=== PATIENT | male | born 1960 | race Caucasian/White ===

== ENCOUNTER 2016-10-12 08:45 | Emergency (ER) | payer OTHER ==
[~2016-10-12] VITALS: Ht 177.8 cm; Wt 104.3 kg
[~2016-10-12 08:45] MED LIST: AMLODIPINE-BEN1 EAC5 PO; CARVEDILOL12.5 M1 PO; NAPROSYN500 M1 PO; OMEPRAZOLE20 M2 PO; PERCOCET 5-3251 EACH PO; TAMSULOSIN HCL0.4 M1 PO; VALIUM2 M1 PO
[2016-10-12 08:49] VITALS: BP 138/84
--- NOTE | 2016-10-12 09:29 | RADIOLOGY REPORT ---
EXAMINATION: XR CHEST CLINICAL INFORMATION: Hemoptysis. COMPARISON: Chest CT from 03/10/2016. Radiograph 05/05/2011 TECHNIQUE: PA and lateral views of the chest were obtained. FINDINGS: The lungs are well expanded. There is no dense consolidation, edema, or effusion. Bronchial wall thickening is noted. No pneumothorax. The cardiomediastinal silhouette is unchanged and within normal limits. Mild degenerative changes of the spine. IMPRESSION: There is no dense consolidation. Bronchial wall thickening can be seen with a small airways process such as asthma or atypical/viral infection.
--- NOTE | 2016-10-12 10:18 | ED DYSPNEA/ASTHMA COMPLAINT ---
History of Present Illness General Chief Complaint: General Adult Stated Complaint: COUGHING UP BLOOD Source: patient, old records Exam Limitations: no limitations Vital Signs & Intake/Output Vital Signs & Intake/Output ED Intake and Output 10/13 0000 10/12 1200 Intake Total 0 Output Total Balance 0 Intake, Oral 0 Patient 230 lb Weight Allergies Coded Allergies: NO KNOWN ALLERGIES (05/05/11) Reconcile Medications Albuterol Sulfate (Proair Hfa) 90 MCG HFA.AER.AD 2 PUF INH Q4-6 PRN PRN bronchitis Alfuzosin HCl (Alfuzosin HCl ER) 10 MG TAB.ER.24H 1 TAB PO DAILY PROSTATE ( Reported) Amlodipine Besylate/Benazepril (Amlodipine-Benazepril 10-40 MG) 10 MG-40 MG CAPSULE 1 CAP PO DAILY HEART (Reported) Atorvastatin Calcium 20 MG TABLET 1 TAB PO DAILY CHOLESTEROL (Reported) Carvedilol 12.5 MG TABLET 1 TAB PO BID HEART (Reported) Diazepam (Valium) 2 MG TABLET 1 TAB PO Q8HR PRN muscle spasms Levofloxacin (Levaquin) 750 MG TABLET 1 TAB PO DAILY bronchitis Methylprednisolone. (Medrol) 4 MG TAB.DS.PK 1 DP PO AD bronchitis 6 on day 1 then reduce by one tablet daily until gone Naproxen (Naprosyn) 500 MG TABLET 1 TAB PO BID PRN pain Omeprazole 20 MG CAPSULE.DR 1 CAP PO DAILY GI (Reported) Oxycodone HCl/Acetaminophen (Percocet 5-325 MG Tablet) 5 MG-325 MG TABLET 1 TAB PO Q6HR PRN pain Robitussin AC (Guaifenesin-Codeine Syrup) 200 MG-20 MG/10 ML LIQUID 10 ML PO Q6HR PRN COUGH Tamsulosin HCl 0.4 MG CAP.ER.24H 1 CAP PO DAILY PROSTATE (Reported) Triage Note: PT C/O CONGESTED COUGH SINCE LAST MONDAY. STATES HE WAS COUGHING UP BLOOD WITH PHLEGM ON MONDAY AND LAST NIGHT Triage Nurses Notes Reviewed? yes Onset: Abrupt Duration: day(s): (5), constant Timing: recent history Severity: mild, moderate Activities at Onset: none Prior Episodes/Possible Cause: similar episode last year Associated Symptoms: cough HPI: 56-year-old male with history of high blood pressure and irregular heartbeat that is controlled with medication on any blood thinners presents emergency room complaining of congestion productive cough of yellow sputum for the past 5 days. He states his is home sick with similar symptoms after being seen here the patient states that he's had 3 episodes of coughing up a small on a blood. The patient states that there is no pain with inspiration no shortness of breath. He does smoke however is not seen by a carpet jack and he has not sought care for the symptoms until today. No dizziness lightheadedness abdominal pain nausea vomiting or diarrhea. The patient states that he had an exact same episode of symptoms last winter for which she was treated with antibiotics and prednisone and resolved on its own. no fever no chills (ADELIA GARAY) Past History Travel History Traveled to [place] past 21 day No Medical History Any Pertinent Medical History? see below for history Cardiovascular: hypertension, IRREGULAR HEARTBEAT Surgical History Surgical History: non-contributory Psychosocial History What is your primary language Slovenian Tobacco Use: Current Daily Use Daily Tobacco Use Amount/Type: => 5 Cigarettes daily ETOH Use: occasional use Illicit Drug Use: denies illicit drug use Family History Hx Contributory? No (ADELIA GARAY) Review of Systems Review of Systems Constitutional: Reports: see HPI. All Other Systems: Reviewed and Negative Comments Review of systems: See HPI, All other systems negative. Constitutional, no chills no fever, no malaise HEENT: No visual changes no sore throat Cardiovascular: No chest pain , no palpitation Skin,no rashes, no change in skin Respiratory: No dyspnea cough sputum hemoptysis GI: No nausea no vomiting, no diarrhea, n : No dysuria Muscle skeletal: No joint pain, no back pain, no neck pain, Neurologic: No numbness no headache Psych: No stress Heme/endocrine: No bruising no bleeding Immunology: No lymphadenopathy (ADELIA GARAY) Physical Exam Physical Exam General Appearance: well developed/nourished, no apparent distress, alert, awake , comfortable Respiratory: normal breath sounds, chest non-tender, no respiratory distress, lungs clear Comments: Well-developed well-nourished patient in no apparent distress. Head/Face: Atraumatic, no maxillary/frontal sinus tenderness, no facial swelling Eyes: PERRL, EOMI, no conjunctival injection. Ear:External auditory canals clear, no erythema Nose: atraumatic.Normal inspection Throat: Moist mucous membranes.Pharynx normal. No pharyngeal erythema/exudate seen. No stridor/drooling or assymetry. No swelling or edema. Neck: Supple, no lymphadenopathy, FROM Back: FROM, Nontender Cardiovascular: Regular rate and rhythms no murmurs rubs or gallops, Respiratory: Chest nontender.There were no bony deformities, no asymmetry. No respiratory distress. Patient speaking in full complete sentences. Breath sounds clear to auscultation bilaterally: NO W/R/R Extremities: full range of motion Neuro: Alert and oriented x3 Skin: Warm & dry;No appreciable rash on exposed skin Psych: Mood affect normal, normal memory normal judgment. Core Measures ACS in differential dx? No Severe Sepsis Present: No Septic Shock Present: No (GUS SHAH,ADELIA) Progress Differential Diagnosis: asthma, AMI, bronchitis, costochondritis, musculoskeletal pain, pericarditis, pulmonary embolism, pneumonia, pneumothorax, unstable angina, malignancy Plan of Care: Discussed with the patient his x-ray findings. There is no pain with inspiration he is not tachycardic oxygen saturations are within normal limits. Discussed with however given the episodes hemoptysis that my recommendations are for workup including CAT scan. Patient states that he had a similar episode with the exact same symptoms last winter for which he was treated with antibiotics and steroids and cough medication and it resolved on its own. he is declining workup including ct at this time. Discussed with the patient at [facility] however that if the symptoms worsen he needs to return to emergency room immediately workup at that time. The patient states he does smoke and will follow up with his pmd this week for repeat eval to ensure symptoms have resolved. again the pt was recommended to him that he have a more extensive workup, my differential was discussed wit him, he denies chest pain, palpitaitons, pain with inspiration and he is declining ct at this time. The patient feels comfortable with this plan case was discussed with Dr. pereira Diagnostic Imaging: Viewed by Me: Radiology Read. Discussed w/RAD: Radiology Read. Radiology Impression: PATIENT: YOKO ROGERS PRESENT AGE: 56 PATIENT ACCOUNT NO: [id number] : 62 LOCATION: [facility] ORDERING PHYSICIAN: EDNA KAUR DO (TBS) SERVICE DATE: 10/12/16 EXAM TYPE: RAD - XRY-CHEST XRAY, PA AND LATERAL EXAMINATION: XR CHEST CLINICAL INFORMATION: Hemoptysis. COMPARISON: Chest CT from 03/10/2016. Radiograph 05/05/2011 TECHNIQUE: PA and lateral views of the chest were obtained. FINDINGS: The lungs are well expanded. There is no dense consolidation, edema, or effusion. Bronchial wall thickening is noted. No pneumothorax. The cardiomediastinal silhouette is unchanged and within normal limits. Mild degenerative changes of the spine. IMPRESSION: There is no dense consolidation. Bronchial wall thickening can be seen with a small airways process such as asthma or atypical/ viral infection. DICTATED BY: JESSICA SCOTT MD DATE/TIME DICTATED:10/12/16925 WELLNESS MANAGER:SAL DATE/TIME TRANSCRIBED:10/12/16925 CONFIDENTIAL, DO NOT COPY WITHOUT APPROPRIATE AUTHORIZATION. <Electronically signed in Other Vendor System> SIGNED BY: JESSICA SCOTT MD 10/12/16928 Initial ED EKG: none (ADELIA GARAY) Departure Departure Time of Disposition: 1029 Disposition: HOME OR SELF CARE Condition: Stable Clinical Impression Primary Impression: Bronchitis Referrals: ROSALIA REGALADO MD (PCP/Family) Additional Instructions: follow up with dr regalado this week for repeat evaluation to ensure your symptoms are improving.. Levaquin as directed, prednisone and Robitussin with codeine as directed. Pro-air inhaler as discussed. Return immediately if he develop worsening of her symptoms, persistent hemoptysis if he developed shortness of breath or pain with inspiration. Departure Forms: Customer Survey General Discharge Information Prescriptions: Current Visit Scripts Methylprednisolone. (Medrol) 1 DP PO AD #1 DP 6 on day 1 then reduce by one tablet daily until gone Levofloxacin (Levaquin) 1 TAB PO DAILY #5 TAB Albuterol Sulfate (Proair Hfa) 2 PUF INH Q4-6 PRN PRN bronchitis #1 INHAL Robitussin AC (Guaifenesin-Codeine Syrup) 10 ML PO Q6HR PRN COUGH #200 ML (ADELIA GARAY) PA/DETECTIVE AND INTELLIGENCE ANALYST Co-Sign Statement Statement: ED Attending supervision documentation- [] I saw and evaluated the patient. I have also reviewed all the pertinent lab results and diagnostic results. I agree with the findings and the plan of care as documented in the PA's/DETECTIVE AND INTELLIGENCE ANALYST's documentation. [X] I have reviewed the ED Record and agree with the PA's/DETECTIVE AND INTELLIGENCE ANALYST's documentation. [] Additions or exceptions (if any) to the PAs/DETECTIVE AND INTELLIGENCE ANALYST's note and plan are summarized below: [] (MODESTO HERNANDEZ,ABHIJEET) Critical Care Note Critical Care Note Critical Care Time: non-applicable (ADELIA GARAY)
[2016-10-12] MEDS ORDERED: ATORVASTATIN CA20 M1 PO (10:20)
[2016-10-12] MEDS ORDERED: ALFUZOSIN HCL E10 MG PO (10:20)
[2016-10-12] MEDS ORDERED: LEVAQUIN750 M1 PO (10:31)
[2016-10-12] MEDS ORDERED: PROAIR HFA8.5 GM INH (10:31)
[2016-10-12] MEDS ORDERED: MEDROL4 M2 PO (10:31)
[2016-10-12] MEDS ORDERED: GUAIFENESIN-COD10 ML PO (10:31)
== END 2016-10-12 10:34 ==
LOC: ERH 08:45
DX: J40 Bronchitis, not specified as acute or chronic (principal); Z72.0 Tobacco use

== ENCOUNTER 2016-11-03 16:02 | Emergency (ER) | payer OTHER ==
[~2016-11-03] VITALS: Ht 180.3 cm; Wt 104.3 kg
[~2016-11-03 16:02] MED LIST changes: +ALFUZOSIN HCL E10 MG PO; +ATORVASTATIN CA20 M1 PO; +GUAIFENESIN-COD10 ML PO; +LEVAQUIN750 M1 PO; +MEDROL4 M2 PO; +PROAIR HFA8.5 GM INH
[2016-11-03 16:06] VITALS: BP 160/85
--- NOTE | 2016-11-03 16:30 | ED INFLUENZA/URI COMPLAINT ---
History of Present Illness General Chief Complaint: General Adult Stated Complaint: PT IS HERE FOR HEAD AND CHEST COLD Source: patient Exam Limitations: no limitations Vital Signs & Intake/Output Vital Signs & Intake/Output Vital Signs Date Time Temp Pulse Resp B/P Pulse O2 O2 Flow FiO2 Ox Delivery Rate 11/03 1628 96 11/03 1606 98.3 88 20 160/85 98 Room Air ED Intake and Output 11/04 0000 11/03 1200 Intake Total 0 Output Total Balance 0 Intake, Oral 0 Patient 230 lb Weight Allergies Coded Allergies: NO KNOWN ALLERGIES (11/03/16) Reconcile Medications Albuterol Sulfate (Proair Hfa) 90 MCG HFA.AER.AD 2 PUF INH Q4-6 PRN PRN bronchitis Alfuzosin HCl (Alfuzosin HCl ER) 10 MG TAB.ER.24H 1 TAB PO DAILY PROSTATE ( Reported) Amlodipine Besylate/Benazepril (Amlodipine-Benazepril 10-40 MG) 10 MG-40 MG CAPSULE 1 CAP PO DAILY HEART (Reported) Atorvastatin Calcium 20 MG TABLET 1 TAB PO DAILY CHOLESTEROL (Reported) Benzonatate (Tessalon Perle) 100 MG CAPSULE 1 CAP PO TID PRN COUGH Carvedilol 12.5 MG TABLET 1 TAB PO BID HEART (Reported) Diazepam (Valium) 2 MG TABLET 1 TAB PO Q8HR PRN muscle spasms Levofloxacin (Levaquin) 750 MG TABLET 1 TAB PO DAILY bronchitis Levofloxacin (Levaquin) 500 MG TABLET 1 TAB PO DAILY BRONCHITIS Methylprednisolone. (Medrol) 4 MG TAB.DS.PK 1 DP PO AD bronchitis 6 on day 1 then reduce by one tablet daily until gone Methylprednisolone. (Medrol) 4 MG TAB.DS.PK 1 DP PO AD INFLAMMATION 6 on day 1 then reduce by one tablet daily until gone Mometasone Furoate (Nasonex) 50 MCG SPRAY.PUMP 2 SPRAY NASB DAILY CONGESTION Naproxen (Naprosyn) 500 MG TABLET 1 TAB PO BID PRN pain Omeprazole 20 MG CAPSULE.DR 1 CAP PO DAILY GI (Reported) Oxycodone HCl/Acetaminophen (Percocet 5-325 MG Tablet) 5 MG-325 MG TABLET 1 TAB PO Q6HR PRN pain Robitussin AC (Guaifenesin-Codeine Syrup) 200 MG-20 MG/10 ML LIQUID 10 ML PO Q6HR PRN COUGH Robitussin AC (Guaifenesin-Codeine Syrup) 200 MG-20 MG/10 ML LIQUID 10 ML PO TID PRN COUGH Tamsulosin HCl 0.4 MG CAP.ER.24H 1 CAP PO DAILY PROSTATE (Reported) Triage Note: TRIAGE: PT TO ER C/C HEAD AND CHEST COLD. ONSET OF S/S MONDAY NIGHT. HAS DRY, NONPRODUCTIVE COUGH AT TRIAGE. Triage Nurses Notes Reviewed? yes Onset: Gradual Duration: constant Timing: recent history Severity: moderate Severity Numbers: 5 Prior Episodes/Possible Cause: occassional episodes HPI: Patient is a 56-year-old male who since emergency room with a 3 day history of gradual onset of cough and nasal congestion and head congestion headache runny nose. Patient states that he had similar sick contacts over the weekend. Patient hasn't taken any medications for symptoms however patient presented to the emergency room approximately 20 days ago with similar complaints and was given medications that significantly improved his symptoms. Patient is an every day smoker. (ADELIA MADDEN) Past History Travel History Traveled to [place] past 21 day No Medical History Any Pertinent Medical History? see below for history Neurological: NONE EENT: NONE Cardiovascular: hypertension, IRREGULAR HEARTBEAT Respiratory: NONE Gastrointestinal: NONE Hepatic: NONE Renal: NONE Musculoskeletal: NONE Psychiatric: NONE Endocrine: NONE Blood Disorders: NONE Cancer(s): NONE DRUM CLEANER/Reproductive: NONE Surgical History Surgical History: non-contributory Psychosocial History What is your primary language St Helenian Tobacco Use: Current Daily Use Daily Tobacco Use Amount/Type: => 5 Cigarettes daily ETOH Use: occasional use Illicit Drug Use: denies illicit drug use Family History Hx Contributory? No (ADELIA MADDEN) Review of Systems Review of Systems Constitutional: Reports: no symptoms. EENTM: Reports: see HPI. Respiratory: Reports: see HPI, cough. Cardiovascular: Reports: no symptoms. GI: Reports: no symptoms. Genitourinary: Reports: no symptoms. Musculoskeletal: Reports: no symptoms. Skin: Reports: no symptoms. Neurological/Psychological: Reports: see HPI. Hematologic/Endocrine: Reports: no symptoms. Immunologic/Allergic: Reports: no symptoms. All Other Systems: Reviewed and Negative (ADELIA MADDEN) Physical Exam Physical Exam General Appearance: no apparent distress, alert Ears, Nose, Throat: moist mucous membrane, hearing grossly normal, Tympanic normal, pharynx normal, nasal congestion, nasal drainage Comments: Well-developed well-nourished person in no acute distress HEENT: , extraocular motion intact, no nystagmus. Pupils equally round and reactive to light and accommodation. Nose is atraumatic. External auditory canal and Tympanic membranes clear. Pharynx normal. No swelling or edema. Nontender sinus Neck: Supple, no lymphadenopathy, normal range of motion without pain or tenderness Back: Nontender, no CVA tenderness. Cardiovascular: Regular rate and rhythms no murmurs rubs or gallops, normal JVP Respiratory: Chest nontender. No respiratory distress.breath sounds clear to auscultation bilaterally Abdomen: Soft, nontender nondistended, no appreciable organomegaly. Normal bowel sounds. No ascites Extremity: No edema, no calf tenderness to palpation, normal and equal pulses. Neuro: Alert oriented x3, motor sensory normal, Skin: No appreciable rash on exposed skin, skin is warm and dry. Psych: Mood and affect is normal, memory and judgment is normal. Core Measures Severe Sepsis Present: No Septic Shock Present: No (SHAWN SHAH,ADELIA) Progress Differential Diagnosis: influenza, meningitis, neutropenia, otitis, pneumonia, pharyngitis, sinusitis Plan of Care: Patient has clear lungs auscultation no respiratory distress. Patient will be treated for concerns of bronchitis and upper respiratory infection. No meningitis symptoms or signs. Patient was strongly advised to discontinue smoking. Oxygen saturation 98% room air Initial ED EKG: none (ADELIA MADDEN) Departure Departure Disposition: HOME OR SELF CARE Condition: Stable Clinical Impression Primary Impression: Bronchitis Referrals: ROSALIA CHA MD (PCP/Family) Additional Instructions: As discussed begin the prescription of Levaquin as directed for the full course. Begin the prescription of Tessalon Perles and Robitussin with codeine for cough , Nasonex for congestion, Medrol Dosepak for inflammation. Begin over-the- counter Sudafed and Mucinex for congestion. If symptoms worsen return to emergency room. prescription is waiting at [facility]. Follow-up with your doctor on Monday if no better. Please discontinue smoking Departure Forms: Customer Survey General Discharge Information Prescriptions: Current Visit Scripts Levofloxacin (Levaquin) 1 TAB PO DAILY #10 TAB Robitussin AC (Guaifenesin-Codeine Syrup) 10 ML PO TID PRN COUGH #120 ML Methylprednisolone. (Medrol) 1 DP PO AD #1 DP 6 on day 1 then reduce by one tablet daily until gone Mometasone Furoate (Nasonex) 2 SPRAY NASB DAILY #1 INHAL Benzonatate (Tessalon Perle) 1 CAP PO TID PRN COUGH #21 CAP (ADELIA MADDEN) PA/FILLER SHREDDING MACHINE LOADER Co-Sign Statement Statement: ED Attending supervision documentation- [] I saw and evaluated the patient. I have also reviewed all the pertinent lab results and diagnostic results. I agree with the findings and the plan of care as documented in the PA's/FILLER SHREDDING MACHINE LOADER's documentation. [X] I have reviewed the ED Record and agree with the PA's/FILLER SHREDDING MACHINE LOADER's documentation. [] Additions or exceptions (if any) to the PAs/FILLER SHREDDING MACHINE LOADER's note and plan are summarized below: [] (MODESTO HERNANDEZ,ABHIJEET)
[2016-11-03] MEDS ORDERED: NASONEX17 GM NASB (17:18)
[2016-11-03] MEDS ORDERED: TESSALON PERLE100 M1 PO (17:18)
[2016-11-03] MEDS ORDERED: GUAIFENESIN-COD10 ML PO (17:18)
[2016-11-03] MEDS ORDERED: LEVAQUIN500 M1 PO (17:18)
[2016-11-03] MEDS ORDERED: MEDROL4 M2 PO (17:18)
== END 2016-11-03 17:34 ==
LOC: ERH 16:02
DX: J40 Bronchitis, not specified as acute or chronic (principal); F17.210 Nicotine dependence, cigarettes, uncomplicated